=== PATIENT | male | born 1990 | race Caucasian/White ===

== ENCOUNTER 2021-04-13 16:00 | Emergency (ER) | payer OTHER ==
[~2021-04-13] VITALS: Ht 175.3 cm; Wt 88.5 kg
[2021-04-13 16:08] VITALS: BP 119/69
--- NOTE | 2021-04-13 16:22 | NUR ---
SEEN AND EXAMINED BY ERIC BHAT.
--- NOTE | 2021-04-13 16:48 | NUR ---
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
--- NOTE | 2021-04-13 17:32 | NUR ---
Patient discharged to home in stable condition. Written and verbal after care instructions given. Patient verbalizes understanding of instruction.
== END 2021-04-13 17:33 | disposition home or self-care (01) ==
LOC: ER 16:33
DX: M79.661 Pain in right lower leg (principal)
CPT/HCPCS: 93971-TC